=== PATIENT | female | born 1975 | race Asian ===

== ENCOUNTER 2024-11-23 08:54 | Emergency (ER) | payer MEDICAID ==
[~2024-11-23] VITALS: Ht 162.6 cm; Wt 54.4 kg
[2024-11-23 10:43] LABS: APPEARANCE,URINE CLEAR (CLEAR); BLOOD, URINE TRACE-INTA Ery/uL (NEGATIVE); LEUKOCYTE ESTERASE ,URINE NEGATIVE (NEGATIVE); NITRITE, URINE NEGATIVE (NEGATIVE); UGLUCOSE NEGATIVE (NEGATIVE)
[2024-11-23 10:44] LABS: ADD URINE CULTURE NO; SQUAMOUS EPITHELIAL CELL,UR None Seen /HPF (None Seen)
[2024-11-23 10:44] LABS: PLATELET COUNT (AUTO) 258 K/uL (150-450); RED BLOOD CELL COUNT(AUTO) 4.21 MIL/uL (4.0-5.2); RED CELL DISTRIBUTION WIDTH 12.9 % (11.5-15.0); WHITE BLOOD COUNT (AUTO) 3.7 K/uL (4.3-11.0)
[2024-11-23 10:51] LABS: CALCIUM, SERUM 9.1 mg/dL (8.5-10.1); CREATININE 0.8 mg/dL (0.6-1.3); SODIUM SERUM 142.0 mmol/L (136-145); UREA NITROGEN, BLOOD 10.0 mg/dL (7-18)
[2024-11-23 11:50] VITALS: BP 127/70; TEMP 98.6; O2SAT 100
== END 2024-11-23 11:55 | disposition home or self-care (01) ==
LOC: ER 09:19
DX: D25.9 Leiomyoma of uterus, unspecified (principal); D72.819 Decreased white blood cell count, unspecified; Z91.013 Allergy to seafood
CPT/HCPCS: 36415; 76856-TC; 80048-TC; 81001; 84703-TC; 85025-TC